=== PATIENT | male | born 1990 | race Two or more races ===

== ENCOUNTER 2025-09-09 11:39 | Emergency (ER) | payer MEDICAID, SELFPAY ==
--- NOTE | ~2025-09-09 | XR_ITS ---
EXAMINATION: XR SHOULDER, RIGHT CLINICAL INFORMATION: ?AC seperation. R shoulder pain COMPARISON: None available. TECHNIQUE: Three views of the right shoulder. FINDINGS: Normal bone mineralization. No fracture, dislocation, or suspicious bone lesion. Normal alignment. The glenohumeral joint is normal. The AC joint is severely subluxed, in keeping with high-grade AC joint separation. Dystrophic calcifications in the regions of the coracoclavicular and acromioclavicular ligaments suggests this is an old injury. There is a type II acromion. No significant undersurface spurring. The subacromial space is preserved. Remainder of the soft tissue and bony structures appear normal. XR/XR shoulder RT min 2V IMPRESSION: 1. No acute abnormality of the right shoulder. 2. Evidence of old high-grade AC joint injury with dystrophic calcification in the regions of the coracoclavicular and acromioclavicular ligaments. Electronically signed by: Chepe Reyes MD 09/09/2025 12:36 PM YOB[facility] MARIE
--- NOTE | ~2025-09-09 | XR_ITS ---
EXAMINATION: XR CLAVICLE, RIGHT CLINICAL INFORMATION: R shoulder pain COMPARISON: None available. TECHNIQUE: Two views of the right clavicle. FINDINGS: There is no acute fracture or dislocation. The clavicle is intact. There is evidence for a likely old high-grade AC joint injury with significant subluxation, and dystrophic subclavicular calcification in the regions of the coracoclavicular and acromioclavicular ligaments. Soft tissues otherwise grossly normal. XR/XR clavicle RT IMPRESSION: 1. No definite acute findings of the right clavicle. 2. Evidence of old high-grade AC joint injury with disruption of the coracoclavicular and acromioclavicular ligaments. Electronically signed by: Chepe Reyes MD 09/09/2025 12:33 PM [facility]IE
[2025-09-09 12:14] VITALS: BP 132/84; PULSE 120; RESP 20; TEMP 36.3; O2SAT 98; BMI 23.5
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
[2025-09-09] MEDS: oxyCODONE HCl Immed Release 5 MG TABLET PO (13:58)
[2025-09-09 14:31] VITALS: BP 132/84; PULSE 102; RESP 20; TEMP 36.3; O2SAT 98
== END 2025-09-09 14:31 | disposition home or self-care (01) ==
PROVIDERS: Emergency Provider Emergency Medicine
DX: M25.511 Pain in right shoulder (principal); S43.101S Unspecified dislocation of right acromioclavicular joint, sequela; X58.XXXS Exposure to other specified factors, sequela
CPT/HCPCS: 73000; 73030; 99283

== ENCOUNTER → 2025-09-09 12:16 | Outpatient (BNV) | payer SELFPAY | PROVIDERS: Visit Provider Radiology Diagnostic Radiology | DX: M25.561 Pain in right knee (principal) | CPT/HCPCS: 73000; 73030 ==

== ENCOUNTER 2025-09-26 15:34 | Emergency (ER) | payer MEDICAID, SELFPAY ==
[2025-09-26 15:37] VITALS: BP 133/96; PULSE 107; RESP 18; TEMP 36.6; O2SAT 98; BMI 25.8
--- NOTE | 2025-09-26 15:39 | ED.GENADULT ---
HPI - General Adult General Chief complaint: Wound/Laceration Stated complaint: General Medical Time Seen by Provider: 09/26/25 20:08 Source: patient Mode of arrival: ambulatory Limitations: no limitations History of Present Illness ED Provider: Chepe DELACRUZ HPI narrative: The patient is a 35-year-old male who presents with a painful lesion in his right brooks area that began approximately four days ago as presumed folliculitis and has progressed to an abscess. The abscess began draining spontaneously last night and continues to leak occasionally without manipulation. He describes the pain as ?unbearable.? He notes waking two nights ago in significant night sweats and reports current nausea and a headache, which starts in the area of induration and radiates up behind the ear. Patient denies associated vomiting or objective fever. He has taken naproxen for pain; last dose was 11am today. He had a similar but less severe episode about one year ago that was treated in [place] with incision and drainage alone (no antibiotics). He denies medication allergies. Related Data Previous Rx's ?Medication ?Instructions ?Recorded ibuprofen 800 mg tablet 800 mg PO Q8H PRN pain #20 tabs 09/09/25 acetaminophen 500 mg capsule 1,000 mg (2 x 500 mg) PO .q8 PRN 09/26/25 fever or pain #30 caps cephalexin 500 mg capsule 500 mg PO BID #14 caps 09/26/25 clindamycin phosphate 1 % topical 1 appl topical BID #30 grams 09/26/25 gel ibuprofen 600 mg tablet 600 mg PO Q8H PRN fever or pain 09/26/25 #30 tabs Allergies Allergy/AdvReac Type Severity Reaction Status Date / Time No Known Allergies Allergy Verified 09/26/25 15:39 Review of Systems Review of Systems: Yes all other systems are reviewed and are negative [facility] Social History Social History Advance Directives: No Advance Directives Information Provided: No Do you have a plan to hurt others: No Plan Physical Exam ED Vital Signs: Vital Signs - 24 hr 09/26/25 15:37 09/26/25 19:35 Temperature 97.9 F 98.4 F Pulse Rate 107 H 87 Respiratory Rate 18 16 Blood Pressure 133/96 H 110/74 Pulse Oximetry 98 97 Oxygen Delivery Method Room Air Room Air BMI result Body Mass Index 25.8 CONSTITUTIONAL: The patient appears non-toxic, well nourished and in no acute distress. Vital signs as documented. HEAD: Atraumatic, normocephalic. EYES: EOMs grossly intact, pupils equal, conjunctiva clear, no exudate. ENT: Nares patent, no discharge. Airway patent, no audible stridor, visible mucosa is pink and moist without noted lesions. NECK: trachea is midline, no obvious masses or gross abnormalities. CHEST: Symmetric movement, normal appearance. LUNGS: Non-labored work of breathing. CARDIAC: No evidence of hypoperfusion. ABDOMEN: Nondistended, no obvious injury. : Deferred. EXTREMITIES: Moves all extremities spontaneously without reported pain. No obvious injury or deformity noted. NEURO: Alert and oriented x3, CN II-XII appear grossly intact. Cerebellar Functioning grossly intact. Speech clear and appropriate. SKIN: Warm, dry, color appropriate. There is an apprpoximately 2cm fluctuant erythematous area noted to the right lower cheek consistent with abscess, there are additional areas of induration advancing posteriorly towards the TMJ, with erythema without swelling noted in the postauricular area, area is tender throughout. No active drainage during exam. No other rashes or lesions noted. Course Course Course Narrative: This is a Rapid Medical Examination (RME) performed by Leslye Lewis PA-C in triage. Full HPI, ROS, assessment and treatment plan per primary provider in the Main ED. Hx: 35 yo M here for eval of facial infection. reports hx of abscesses. not currently on abx. no dental pain. PE/vitals: noted folliculitis to right brooks line w/ assoc abscess. poor dentition w/ dental caries, no obvious periapical infection. Plan: basic labs, I&D Medications Administered Discontinued Medications Generic Name Dose Route Start Last Admin Trade Name Freq PRN Reason Stop Dose Admin Acetaminophen 975 mg 09/26/25 21:09/26/25 21:23 Acetaminophen 325 Mg Tablet PO 09/26/25 21:05 975 mg ONCE ONE Administration Cephalexin HCl 500 mg 09/26/25 21:04 09/26/25 21:23 Cephalexin 500 Mg Capsule PO 09/26/25 21:05 500 mg ONCE ONE Administration Lidocaine HCl 5 ml 09/26/25 21:04 09/26/25 21:49 Lidocaine Hcl 1 % Mpf 5 Ml Vial INFILTRATI 09/26/25 21:05 5 ml ONCE ONE Administration Naproxen 250 mg 09/26/25 21:04 09/26/25 21:23 Naproxen 250 Mg Tablet PO 09/26/25 21:05 250 mg ONCE ONE Administration Oxycodone HCl 5 mg 09/26/25 21:04 09/26/25 21:24 Oxycodone Hcl Immed Release 5 Mg Tablet PO 09/26/25 21:05 5 mg ONCE ONE Administration Procedures Abscess I/D Site: face Side (if applicable): right Local Anesthetic: lidocaine 1% Amount of anesthesia used (mL): 2 Technique: incised with blade (11) Amount of fluid expressed (mL): 5 Sent for culture/gram staining?: No Irrigation: No Packing used?: none Complications: other (None) Medical Decision Making Medical Decision Making [facility] Narrative: 9:10 PM 09/26/2025 (Leslye DELACRUZ): The patient is a 35-year-old male who presents with a painful lesion in his brooks area that began approximately four days ago as presumed folliculitis and has progressed to an abscess. The abscess began draining spontaneously last night and continues to leak occasionally without manipulation. He describes the pain as ?unbearable.? He notes waking two nights ago in significant night sweats and reports current nausea and a headache that is present now, starting in the area of induration and radiating up behind the ear. He has taken naproxen for pain; last dose was 11am today. He had a similar but less severe episode about one year ago that was treated with incision and drainage alone (no antibiotics). He denies medication allergies. On exam the patient is nontoxic appearing, the right inferior cheek demonstrates an approximate 2 cm area of induration and fluctuance with additional areas of induration without fluctuance noted advancing posteriorly from the primary lesion, also with erythema without swelling noted in the postauricular area, findings consistent with folliculitis complicated by cellulitis and abscess. The patient will be treated with incision and drainage of the primary lesion, as well as pain management and cephalexin for antibiotic coverage of cellulitis. Given the location within the brooks, we will also prescribe topical clindamycin in addition to cephalexin. Admission/Observation Consideration of admission/observation: Escalation of care including admission/observation considered Lab Data MDM Lab Attestation statement: I reviewed the patient's lab results. 09/26/25 15:47 09/26/25 15:47 Labs: Lab Results 09/26/25 Range/Units 15:47 WBC 12.1 H (4.8-10.8) X10*3/uL RBC 5.18 (4.60-5.80) X10*6/uL Hgb 16.9 (14.0-18.0) g/dl Hct 49.3 (42.0-52.0) % MCV 95.2 (80.0-98.0) fL MCH 32.6 (27.0-33.0) pg MCHC 34.3 (31.0-36.0) g/dl RDW 12.9 (11.0-16.0) % Plt Count 346 (160-400) X10*3/uL MPV 9.0 L (9.4-12.4) fL Immature Gran % (Auto) 0.4 (0.0-0.4) % Neut % (Auto) 68.9 (45-73) % Lymph % (Auto) 20.7 (20-40) % Hooker % (Auto) 8.4 (2-11) % Eos % (Auto) 0.9 (0-4) % Baso % (Auto) 0.7 (0-2) % Lymph # (Auto) 2.5 (1.2-4.9) X10*3/uL Hooker # (Auto) 1.0 (0.1-1.2) X10*3/uL Eos # (Auto) 0.1 (0.0-0.4) X10*3/uL Baso # (Auto) 0.1 (0.0-0.2) X10*3/uL Abs Immat Gran (auto) 0.05 H (0.00-0.03) X10*3/uL Absolute Neuts (auto) 8.3 (2.0-8.3) x10*3/uL Absolute Nucleated RBC 0.000 (0.0-0.012) X10*3/uL Nucleated RBC % (auto) 0.0 (0.0-0.2) /100WBC Sodium 143 (135-145) mmol/L Potassium 4.1 (3.3-5.1) mmol/L Chloride 104 (96-108) mmol/L Carbon Dioxide 27 (22-29) mmol/L Anion Gap 16 (12-20) BUN 5 L (9-16) mg/dL Creatinine 0.62 (0.5-1.4) mg/dL Estim Creat Clear Calc 152.5 Estimated GFR > 60 Random Glucose 91 (60-115) mg/dL Calcium 9.7 (8.4-10.2) mg/dL Total Bilirubin 0.3 (0.0-1.0) mg/dL AST 86 H (5-37) U/L ALT 59 H (0-40) U/L Alkaline Phosphatase 105 (39-117) U/L Total Protein 7.4 (6.5-8.0) g/dL Albumin 4.5 (3.5-5.0) g/dL External Record Review External record reviewed: Outpatient record Prescription Management I considered prescription management with: Pain Medication and Antibiotic Discharge Plan Discharge Clinical Impression: Abscess of face Patient Disposition: Home, Self-Care Instructions: Abscess (ED), Abscess Follow-up (ED), Incision and Drainage (ED) Additional Instructions: Thank you for choosing [facility]'s Emergency Department for your care today. At this time there is no indication for admission to the hospital or continued ED observation, and it is safe to discharge you home. Your exam was consistent with a facial abscess with surrounding cellulitis, likely secondary to a case of folliculitis, which is an infection of hair follicles in your brooks. Your abscess was incised and drained with subsequent expression of a moderate amount of infectious material. This incision and drainage should result in a significant improvement in your discomfort. You should take alternating (staggered) doses of ibuprofen 600mg and Tylenol 1000mg every 4 hours as needed for any additional pain. You may take naproxen, according to the continuity writer's instructions, in place of ibuprofen, however do not take ibuprofen and naproxen at the same time, as this may cause damage to your kidneys. Please stay well hydrated and get plenty of rest. You may shower starting tomorrow morning. Please change your dressing twice daily until drainage has subsided. Please use gauze and tape, do not use an occlusive dressing that would prevent drainage from the area. Due to the extent of your infection we are treating you with both a topical antibiotic called clindamycin, and an oral antibiotic called cephalexin. Please take both of these as directed, until finished. Please follow up with your primary care physician for re-evaluation, additional management of your symptoms, and continued preventative care. If you do not have a primary care physician, please call the [facility] at [phone] to establish a new primary care physician. While waiting to establish your new primary care physician, you can call our Walk[facility]in [facility] at [phone] for non-emergency needs. Please return to the emergency department if you develop a severe or sudden change in your symptoms, a fever over 100.4 that does not improve with Tylenol or Ibuprofen, recurrent vomiting, or any other new or worsening symptoms or concerns. Prescriptions: New cephalexin 500 mg capsule 500 mg PO BID Qty: 14 0RF ibuprofen 600 mg tablet 600 mg PO Q8H PRN (Reason: fever or pain) Qty: 30 0RF acetaminophen 500 mg capsule 1,000 mg PO .q8 PRN (Reason: fever or pain) Qty: 30 0RF clindamycin phosphate 1 % gel 1 appl topical BID Qty: 30 0RF No Action ibuprofen 800 mg tablet 800 mg PO Q8H PRN (Reason: pain) Qty: 20 0RF Print Language: Divehi
[2025-09-26 16:03] LABS: MANUAL DIFF FLAG NO
[2025-09-26 16:04] LABS: Hematocrit 49.3 % (42.0-52.0); Hemoglobin 16.9 g/dl (14.0-18.0); Imm Gran Abs Auto 0.05 X10*3/uL (0.00-0.03); Imm Gran Pct Auto 0.4 % (0.0-0.4); Lymphocytes Absolute Auto 2.5 X10*3/uL (1.2-4.9); Mean Corpuscular HGB Conc 34.3 g/dl (31.0-36.0); Mean Corpuscular Hemoglobin 32.6 pg (27.0-33.0); Mean Corpuscular Volume 95.2 fL (80.0-98.0); NRBC Abs Auto 0.000 X10*3/uL (0.0-0.012); NRBC Pct Auto 0.0 /100WBC (0.0-0.2); Platelet Count 346 X10*3/uL (160-400); Red Blood Count 5.18 X10*6/uL (4.60-5.80); White Blood Count 12.1 X10*3/uL (4.8-10.8)
[2025-09-26 16:18] LABS: Alanine Aminotransferase 59 U/L (0-40); Albumin Level 4.5 g/dL (3.5-5.0); Alkaline Phosphatase 105 U/L (39-117); Anion Gap 16 (12-20); Aspartate Amino Transferase 86 U/L (5-37); Blood Urea Nitrogen 5 mg/dL (9-16); Calcium 9.7 mg/dL (8.4-10.2); Carbon Dioxide 27 mmol/L (22-29); Chloride 104 mmol/L (96-108); Creatinine Clr Calc Pharmacy 152.5; Estimated Glomerular Filt Rate > 60; Potassium 4.1 mmol/L (3.3-5.1); Sodium 143 mmol/L (135-145); Total Protein 7.4 g/dL (6.5-8.0)
[2025-09-26 19:35] VITALS: BP 110/74; PULSE 87; RESP 16; TEMP 36.9; O2SAT 97
[2025-09-26] MEDS: oxyCODONE HCl Immed Release 5 MG TABLET PO (21:24)
[2025-09-26 21:49] VITALS: BP 143/87; PULSE 100; RESP 18; O2SAT 97
[2025-09-26] MEDS: Lidocaine HCl 1 % MPF 5 ML VIAL INFILTRATI (21:49)
[2025-09-26 22:13] VITALS: BP 143/87; PULSE 100; RESP 18; TEMP 36.8; O2SAT 97
== END 2025-09-26 22:14 | disposition home or self-care (01) ==
PROVIDERS: Physician Assistant Medical; Emergency Provider Emergency Medicine Emergency Medical Services
DX: L02.01 Cutaneous abscess of face (principal)
CPT/HCPCS: 10060; 36415; 80053; 85025; 99283; 99284; J2003